=== PATIENT | male | born 1940 | race Caucasian/White ===

== ENCOUNTER 2022-06-20 13:33 | Outpatient (RCR) | payer OTHER, SELFPAY | END 2022-07-31 14:00 | disposition home or self-care (01) | LOC: HO.WCC 13:33 | PROVIDERS: Visit Provider Surgery | DX: E11.622 Type 2 diabetes mellitus with other skin ulcer (principal); L97.812 Non-pressure chronic ulcer of other part of right lower leg with fat layer exposed; L97.822 Non-pressure chronic ulcer of other part of left lower leg with fat layer exposed; I87.333 Chronic venous hypertension (idiopathic) with ulcer and inflammation of bilateral lower extremity; Q82.0 Hereditary lymphedema; I87.2 Venous insufficiency (chronic) (peripheral); Z79.01 Long term (current) use of anticoagulants; Z79.82 Long term (current) use of aspirin; Z79.899 Other long term (current) drug therapy | CPT/HCPCS: 11042; 97597; 99212 ==

== ENCOUNTER → 2022-08-07 14:11 | Outpatient (BNVA) | payer OTHER, SELFPAY | PROVIDERS: PCP Internal Medicine; Visit Provider Surgery Vascular Surgery | DX: I83.11 Varicose veins of right lower extremity with inflammation (principal) | CPT/HCPCS: 99202 ==

== ENCOUNTER 2022-08-16 10:07 | Outpatient (REF) | payer OTHER, SELFPAY ==
--- NOTE | ~2022-08-16 | US_ITS ---
EXAMINATION: US VENOUS BILATERAL LOWER EXTREMITIES (REFLUX EXAM) CLINICAL INDICATION: Leg pain and varicose veins. COMPARISON: None. TECHNIQUE: Color flow triplex imaging and compression Doppler was performed to evaluate both the deep and the superficial systems bilaterally. To evaluate the superficial system, the examination was performed in the upright position. Color-flow Doppler ultrasound and compression ultrasound were utilized. In addition, maneuvers were utilized to demonstrate reflux. FINDINGS: 1. DEEP VENOUS ULTRASOUND OF THE RIGHT LOWER EXTREMITY: Respiratory variation, normal compression and augmented flow are noted in the right common femoral vein as well as the right popliteal vein and there is no evidence of deep venous thrombosis at these locations. There is deep venous reflux in the mid femoral vein for 0.8 seconds and in the popliteal vein for 2.5 seconds. There is no evidence of a Menjivar's cyst. 2. SUPERFICIAL ULTRASOUND WITH DOPPLER OF RIGHT LOWER EXTREMITY: Right great saphenous vein only seen proximally at the junction measuring 4 mm. There is a history of stripping. There is no reflux demonstrated in the right great saphenous vein. DUPLICATED RIGHT GREAT SAPHENOUS VEIN: There is a 5 mm lateral accessory saphenous that demonstrates at least 3 seconds of reflux in the mid thigh downwards. The right small saphenous vein measures 4 mm and shows no reflux. ACCESSORY VEIN OF GIACOMINI: None. INCOMPETENT PERFORATORS: None. VARICES PRESENT: Refluxing varicosities up to 0.5 cm in size are present with reflux times of 2.2 seconds. 3. DEEP VENOUS ULTRASOUND OF THE LEFT LOWER EXTREMITY: Respiratory variation, normal compression and augmented flow are noted in the left common femoral vein as well as the left popliteal vein and there is no evidence of deep venous thrombosis at these locations. There is deep venous reflux present in the mid femoral vein for 2.6 seconds and in the popliteal vein for 2.1 seconds. There is no evidence of a Menjivar's cyst. 4. SUPERFICIAL ULTRASOUND WITH DOPPLER OF LEFT LOWER EXTREMITY: Left great saphenous vein at the saphenofemoral junction measures 8 mm, at the proximal thigh 5 mm, at the mid thigh 6 mm, above the knee 5 mm, at the knee 5 mm, [id number] 4 mm, midcalf 4 mm and at the ankle measures 4 mm. Reflux is present from the mid calf downwards with reflux times of almost 3 seconds. DUPLICATED LEFT GREAT SAPHENOUS VEIN: There is a 4 mm lateral accessory saphenous that refluxes for 1.2 seconds from the mid thigh downwards. The left small saphenous vein measures 0.4 mm and shows no reflux. ACCESSORY VEIN OF GIACOMINI: None. INCOMPETENT PERFORATORS: None. VARICES PRESENT: Reflux varices are present in the proximal thigh up to 0.5 cm in size without reflux. US/US venous duplex LE BI IMPRESSION: 1. There is evidence of deep venous reflux as described above. 2. There is reflux in the distal great saphenous system on the left. The right great saphenous vein is not seen status post stripping. There are lateral accessory saphenous veins present bilaterally which demonstrate reflux described above.
== END 2022-08-16 10:08 | disposition home or self-care (01) ==
LOC: HO.US 10:07
PROVIDERS: Visit Provider Surgery Vascular Surgery
DX: I83.893 Varicose veins of bilateral lower extremities with other complications (principal)
CPT/HCPCS: 93970

== ENCOUNTER 2022-09-18 08:57 | Outpatient (RCR) | payer OTHER, SELFPAY | END 2022-10-26 13:42 | disposition home or self-care (01) | LOC: HO.WCC 08:57 | PROVIDERS: PCP Internal Medicine; Visit Provider Physician Assistant | DX: E11.622 Type 2 diabetes mellitus with other skin ulcer (principal); I87.331 Chronic venous hypertension (idiopathic) with ulcer and inflammation of right lower extremity; L97.812 Non-pressure chronic ulcer of other part of right lower leg with fat layer exposed; Q82.0 Hereditary lymphedema; I25.10 Atherosclerotic heart disease of native coronary artery without angina pectoris; Z87.891 Personal history of nicotine dependence | CPT/HCPCS: 11042; 99212 ==

== ENCOUNTER → 2022-09-25 13:14 | Outpatient (BNVA) | payer OTHER, SELFPAY | PROVIDERS: PCP Internal Medicine; Visit Provider Surgery Vascular Surgery | DX: I83.11 Varicose veins of right lower extremity with inflammation (principal) | CPT/HCPCS: 99212 ==

== ENCOUNTER → 2022-11-09 07:33 | Outpatient (BNVA) | payer OTHER, SELFPAY | PROVIDERS: PCP Internal Medicine; Visit Provider Surgery Vascular Surgery | DX: I83.11 Varicose veins of right lower extremity with inflammation (principal) | CPT/HCPCS: 36475 ==

== ENCOUNTER → 2022-11-22 10:24 | Outpatient (BNVA) | payer OTHER, SELFPAY | PROVIDERS: PCP Internal Medicine; Visit Provider Surgery Vascular Surgery | DX: I83.11 Varicose veins of right lower extremity with inflammation (principal) | CPT/HCPCS: 99212 ==

== ENCOUNTER 2023-01-21 12:45 | Outpatient (RCR) | payer OTHER, SELFPAY | END 2023-02-12 11:11 | disposition home or self-care (01) | LOC: HO.WCC 12:45 | PROVIDERS: PCP Internal Medicine; Visit Provider Physician Assistant | DX: E11.622 Type 2 diabetes mellitus with other skin ulcer (principal); L97.812 Non-pressure chronic ulcer of other part of right lower leg with fat layer exposed; Q82.0 Hereditary lymphedema; I87.2 Venous insufficiency (chronic) (peripheral); I10 Essential (primary) hypertension; F10.90 Alcohol use, unspecified, uncomplicated; Z87.891 Personal history of nicotine dependence | CPT/HCPCS: 11042; 11045; 97597; 99212 ==

== ENCOUNTER 2023-03-29 12:45 | Outpatient (RCR) | payer OTHER, SELFPAY | END 2023-05-03 09:48 | disposition home or self-care (01) | LOC: HO.WCC 12:45 | PROVIDERS: PCP Internal Medicine; Visit Provider Physician Assistant | DX: E11.622 Type 2 diabetes mellitus with other skin ulcer (principal); L97.812 Non-pressure chronic ulcer of other part of right lower leg with fat layer exposed; Q82.0 Hereditary lymphedema; I87.2 Venous insufficiency (chronic) (peripheral); I10 Essential (primary) hypertension; Z87.891 Personal history of nicotine dependence | CPT/HCPCS: 11042; 97597; 99212 ==